=== PATIENT | male | born 1960 ===

== ENCOUNTER 2016-10-13 18:09 | Emergency (ER) | payer MEDICAID, OTHER ==
[2016-10-13 18:41] VITALS: BP 148/106; PULSE 64; RESP 20; TEMP 98; O2SAT 98
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
== END 2016-10-13 19:43 | disposition home or self-care (01) ==
LOC: H.ER 18:09
DX: M79.642 Pain in left hand (principal); I10 Essential (primary) hypertension

== ENCOUNTER 2017-08-01 03:41 | Emergency (ER) | payer OTHER ==
[2017-08-01 04:06] VITALS: BP 149/80; PULSE 68; RESP 17; TEMP 98.4; O2SAT 98
--- NOTE | 2017-08-01 04:55 | ED PDOC ---
HPI: CCC, URI, Sore Throat Time Seen by Provider: 08/01/17 04:14 Chief Complaint (Nursing): Flu-like Symptoms Chief Complaint (Provider): flu-like symptoms History Per: Patient History/Exam Limitations: no limitations Onset/Duration Of Symptoms: Days (3) Current Symptoms Are (Timing): Still Present Additional History Per: Patient Additional Complaint(s): 57 y/o male presents with flu-like symptoms x 3 days. Patient reports nasal congestion, productive cough. Patient states this morning he noted intermittent bleeding from left nare, since resolved. Denies fever, chest pain , shortness of breath, palpitations, abdominal pain, recent travel, sick contacts. Past Medical History Reviewed: Historical Data, Nursing Documentation, Vital Signs Vital Signs: Last Vital Signs Temp 98.4 F 08/01/17 04:03 Pulse 68 08/01/17 04:03 Resp 17 08/01/17 04:03 BP 149/80 08/01/17 04:03 Pulse Ox 98 08/01/17 05:31 - Medical History PMH: HTN - Family History Family History: States: Unknown Family Hx - Immunization History Hx Tetanus Toxoid Vaccination: Yes Hx Influenza Vaccination: No Hx Pneumococcal Vaccination: No - Home Medications Home Medications: Ambulatory Orders Medication Instructions Recorded Lisinopril/Hydrochlorothiazide 1 tab PO DAILY 02/19/16 [Lisinopril-Hctz 20-25 mg Tab] Meclizine [Antivert] 12.5 mg PO TID PRN #15 tab 02/19/16 Ibuprofen [Motrin] 400 mg PO Q6 #30 tab 10/13/16 Promethazine DM [Phenergan DM 5 ml PO Q6 PRN #1 bottle 08/01/17 Syrup] Sodium Chloride [[facility] 1 spray NS Q4 PRN #1 bottle 08/01/17 Pharmacy Saline Nasal [place] 44 ] - Allergies Allergies/Adverse Reactions: Allergies Allergy/AdvReac Type Severity Reaction Status Date / Time No Known Allergies Allergy Verified 02/19/16 06:40 Review of Systems ROS Statement: Except As Marked, All Systems Reviewed And Found Negative ENT: Positive for: Nose Congestion Cardiovascular: Positive for: Chest Pain Physical Exam - Reviewed Nursing Documentation Reviewed: Yes Vital Signs Reviewed: Yes - Physical Exam Appears: Positive for: Well, Non-toxic, No Acute Distress Head Exam: Positive for: ATRAUMATIC, NORMAL INSPECTION, NORMOCEPHALIC Skin: Positive for: Normal Color ENT: Positive for: Nasal Congestion Cardiovascular/Chest: Positive for: Regular Rate, Rhythm Respiratory: Positive for: Normal Breath Sounds Gastrointestinal/Abdominal: Positive for: Normal Exam Back: Positive for: Normal Inspection Extremity: Positive for: Normal ROM Neurologic/Psych: Positive for: Alert, Oriented - ECG O2 Sat by Pulse Oximetry: 98 Pulse Ox Interpretation: Normal - Radiology X-Ray: Viewed By Me X-Ray Interpretation: No Acute Disease - Progress ED Course And Treament: flu, chest xray Patient educated on findings, discharged with rx promethazine DM. Advised nasal saline OTC PRN. Follow up PMD 2-3 days. Return precautions given. Disposition - Clinical Impression Clinical Impression: Epistaxis, URI (upper respiratory infection) - Patient ED Disposition Is Patient to be Admitted: No Counseled Patient/Family Regarding: Studies Performed, Diagnosis, Need For Followup, Rx Given - Disposition Referrals: Kalpana Mott MD [Primary Care Provider] - Disposition: Routine/Home Disposition Time: 05:38 Condition: GOOD Prescriptions: Promethazine DM [Phenergan DM Syrup] 5 ml PO Q6 PRN #1 bottle PRN Reason: Cough Sodium Chloride [[facility] Saline Nasal [place] 44 ] 1 spray NS Q4 PRN #1 bottle PRN Reason: nasal congestion Instructions: Upper Respiratory Infection (ED), Nosebleed (ED) Forms: [facility] ([place]) Print Language: COMORAN
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
== END 2017-08-01 05:55 | disposition home or self-care (01) ==
LOC: H.ER 03:41
DX: J06.9 Acute upper respiratory infection, unspecified (principal); R04.0 Epistaxis; I10 Essential (primary) hypertension

== ENCOUNTER 2017-08-20 17:16 | Emergency (ER) | payer OTHER ==
[2017-08-20 17:41] VITALS: BP 143/91; PULSE 93; RESP 16; TEMP 98.1; O2SAT 97
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
--- NOTE | 2017-08-21 12:50 | RAD ---
HISTORY: Cough COMPARISON: 08/01/2017. TECHNIQUE: Chest PA and lateral FINDINGS: LUNGS: No active pulmonary disease. PLEURA: No significant pleural effusion identified. No pneumothorax apparent. CARDIOVASCULAR: No radiographic findings to suggest acute or significant cardiovascular disease. OSSEOUS STRUCTURES: No significant abnormalities. VISUALIZED UPPER ABDOMEN: Normal. OTHER FINDINGS: None. IMPRESSION: No active disease. No significant interval change compared to the prior examination(s).
== END 2017-08-20 21:01 | disposition home or self-care (01) ==
LOC: H.ER 17:16
DX: J40 Bronchitis, not specified as acute or chronic (principal); I10 Essential (primary) hypertension

== ENCOUNTER 2018-06-05 01:56 | Inpatient (IN) | payer OTHER ==
[2018-06-05] MEDS ORDERED: Sodium Chloride 0.9% 1,000 ML IV STA (02:57)
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
[2018-06-05 04:03] LABS: BASO # 0.1 K/uL (0.0-0.2); BASO % 0.7 % (0.0-2.0); EOS # 0.2 K/uL (0.0-0.7); EOS % 1.8 % (0.0-4.0); HEMOGLOBIN 15.5 g/dL (12.0-18.0); LYMPH # 2.4 K/uL (1.0-4.3); LYMPH % 25.6 % (20.0-40.0); MEAN CELL VOLUME 83.1 fl (80.0-94.0); MEAN CORPUSCULAR HEMOGLOBIN 28.3 pg (27.0-31.0); MEAN PLATELET VOLUME 8.6 fl (7.2-11.7); MONO # 0.8 K/uL (0.0-0.8); MONO % 8.9 % (0.0-10.0); NEUT # 5.9 K/uL (1.8-7.0); NRBC % 0.1 % (0.0-0.0); RBC 5.47 Mil/uL (4.40-5.90); RED CELL DISTRIBUTION WIDTH 14.5 % (11.5-14.5); WHITE BLOOD COUNT 9.3 K/uL (4.8-10.8)
[2018-06-05 04:13] LABS: ALB/GLOB RATIO 1.3 (1.0-2.1); ALBUMIN 4.7 g/dL (3.5-5.0); ALT/SGPT 46 U/L (21-72); AST/SGOT 29 U/L (17-59); BLOOD UREA NITROGEN 16 mg/dl (9-20); CALCIUM 8.9 mg/dL (8.4-10.2); GFR NON-AFRICAN AMERICAN > 60; LIPASE 199 U/L (23-300)
[2018-06-05 04:31] LABS: URINE BACTERIA RARE (<OCC); URINE BILIRUBIN NEGATIVE (NEGATIVE); URINE BLOOD NEGATIVE (NEGATIVE); URINE CLARITY SLIGHTY-CLOUDY (Clear); URINE COLOR YELLOW (YELLOW); URINE GLUCOSE (UA) NEG (Normal); URINE LEUKOCYTE ESTERASE NEG Leu/uL (Negative); URINE PROTEIN NEGATIVE (NEGATIVE)
[2018-06-05] MEDS ORDERED: Piperacillin/Tazobact 3.375 GM in Sodium Chloride 0.9% 100 ML IV ONE (04:51)
[2018-06-05 04:52] LABS: PROTHROMBIN TIME 11.3 Seconds (9.8-13.1)
[2018-06-05 04:55] LABS: PARTIAL THROMBOPLASTIN TIME 32.9 Seconds (25.6-37.1)
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
[2018-06-05] MEDS ORDERED: Dextrose 5%/Lactated Ringer's 1,000 ML IV SCH ×2 (05:15)
[2018-06-05] MEDS: Potassium Chloride 20 mEq 100 ML IVPB SCH ×2 (06:26→09:30)
--- NOTE | 2018-06-05 08:37 | CARD ---
APPROVED REPORT Date of service: 06/05/2018 EKG Measurement Heart [id number] <Conclusion> Normal sinus rhythm Normal ECG
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
--- NOTE | 2018-06-05 11:16 | US ---
Date of service: 06/05/2018 HISTORY: upper abdominal pain COMPARISON: 03/24/2013. Abdominal ultrasound TECHNIQUE: Sonographic evaluation of the right upper quadrant of the abdomen. FINDINGS: LIVER: Measures 15.2 cm in length. Hepatopedal blood flow. Fatty infiltration manifest ultrasonographically as increased echogenicity of the liver parenchyma. No mass. No intrahepatic bile duct dilatation. Incidental finding(s): Simple cyst left hepatic lobe 3 x 3.3 cm. Stable finding compared to the prior study. GALLBLADDER: Gallstones. Gallbladder wall thickening, pericholecystic fluid and positive sonographic Baird sign. COMMON BILE DUCT: Measures 5.9 mm. No stones. No dilatation. PANCREAS: Obscured by overlying bowel gas. Non diagnostic assessment of the pancreas. RIGHT KIDNEY: Measures 5.1 x 10.1 cm in length. Normal echogenicity. No calculus, mass, or hydronephrosis. AORTA: No aneurysmal dilatation. IVC: Unremarkable. OTHER FINDINGS: None . IMPRESSION: Cholelithiasis, ultrasound findings of acute cholecystitis. Limitations of the current examination: Nondiagnostic study of the pancreas obscured by overlying bowel gas. Concordant findings (preliminary report) provided by ALMAZ ESQUEDA.
[2018-06-05] MEDS ORDERED: Piperacillin/Tazobact 3.375 gm Inj IVPB ONE (13:52)
[2018-06-05] MEDS: Piperacillin/Tazobact 3.375 GM in Sodium Chloride 0.9% 100 ML IVPB SCH ×2 (14:08→19:15)
[2018-06-05] MEDS ORDERED: Propofol 10 mg/ml Inj (20 ML) ONE ×2 (15:04→17:30)
[2018-06-05] MEDS ORDERED: Succinylcholine 200 mg/10 ml Inj IV ONE (15:05)
[2018-06-05] MEDS ORDERED: Midazolam 2 MG/2 ML VIAL ONE (15:05)
[2018-06-05] MEDS ORDERED: Rocuronium 10 mg/ml (5 ml) ONE (15:05)
[2018-06-05] MEDS ORDERED: Lidocaine 4% (Laryng-O-Jet) Kit MM ONE (15:05)
[2018-06-05] MEDS ORDERED: Lactated Ringer's 1,000 ML IV ONE ×2 (15:30→20:35)
[2018-06-05] MEDS ORDERED: Sodium Chloride 0.9% 1,000 ML IV ONE (15:40)
[2018-06-05] MEDS ORDERED: Labetalol 5mg/ml (4ml) ONE (16:02)
[2018-06-05] MEDS ORDERED: Neostigmine 1:1000 (1 mg/ml) Inj ONE (16:59)
[2018-06-05] MEDS ORDERED: Lactated Ringer's 500 ML IV ONE ×2 (17:08→17:40)
[2018-06-05] MEDS ORDERED: DiphenhydrAMINE 50 mg/ml Inj IVP PRN (17:43)
[2018-06-05] MEDS ORDERED: Dexamethasone 4 mg/1 ml IVP PRN (17:43)
[2018-06-05] MEDS ORDERED: Labetalol 5mg/ml (4ml) IVP PRN (17:43)
[2018-06-05] MEDS ORDERED: HYDROmorphone 0.5 mg/0.5 ml ISec ONE (17:45)
[2018-06-05] MEDS ORDERED: Lactated Ringer's 1,000 ML IV SCH (17:45)
[2018-06-05] MEDS ORDERED: HYDROmorphone 0.5 mg/0.5 ml ISec IVP PRN ×2 (17:46→18:15)
--- NOTE | 2018-06-05 17:48 | PCM.SURG1 ---
Surgeon's Initial Post Op Note - Surgeon's Notes Surgeon: Dr. Amaya Supervisor Road Administrator: Mary Jo Galaviz PGY3, Rose PGY4 Type of Anesthesia: General Endo Anesthesia Administered By: Dr. cardenas Pre-Operative Diagnosis: cholecystitis Operative Findings: large 3 gallstones , marked adhesions. Post-Operative Diagnosis: CHolelithiasis Operation Performed: Laparoscopic cholecystectomy , ENRRIQUE Specimen/Specimens Removed: gallbladder Estimated Blood Loss: EBL {In ML}: 50 Blood Products Given: N/A Drains Used: No Drains Post-Op Condition: Good Date of Surgery/Procedure: 06/05/18 Time of Surgery/Procedure: 17:48
[2018-06-05] MEDS: HYDROmorphone 0.5 mg/0.5 ml ISec IVP PRN ×2 (17:55→18:10)
[2018-06-05] MEDS ORDERED: Patient's Own Med (Lisinopril/Hydrochlorothiazide [Lisinopril-Hctz 20-25 Mg Tab] 1 TAB) PO SCH (21:10)
[2018-06-05] MEDS: Oxycodone/Acetaminophen 5/325 mg Tab PO PRN (23:15)
[2018-06-06] MEDS: Piperacillin/Tazobact 3.375 GM in Sodium Chloride 0.9% 100 ML IVPB SCH ×3 (00:09→12:01)
[2018-06-06 08:00] VITALS: BP 163/99; PULSE 80; RESP 19; TEMP 98.8; O2SAT 94
[2018-06-06 08:15] LABS: HEMOGLOBIN 13.9 g/dL (12.0-18.0); MEAN CELL VOLUME 83.4 fl (80.0-94.0); MEAN CORPUSCULAR HGB CONC 33.6 g/dL (33.0-37.0); RBC 4.96 Mil/uL (4.40-5.90); RED CELL DISTRIBUTION WIDTH 14.3 % (11.5-14.5); WHITE BLOOD COUNT 9.5 K/uL (4.8-10.8)
[2018-06-06 08:31] LABS: ALB/GLOB RATIO 1.3 (1.0-2.1); ALBUMIN 3.8 g/dL (3.5-5.0); ALT/SGPT 76 U/L (21-72); AST/SGOT 83 U/L (17-59); BLOOD UREA NITROGEN 8 mg/dl (9-20); CALCIUM 8.3 mg/dL (8.4-10.2); GFR NON-AFRICAN AMERICAN > 60
--- NOTE | 2018-06-06 08:32 | CP.PCM.DIS ---
Provider - Provider Date of Admission: 06/05/18 04:57 Attending physician: Karley Amaya MD Time Spent in preparation of Discharge (in minutes): 30 Diagnosis - Discharge Diagnosis (1) Acute cholecystitis Status: Acute Hospital Course - Lab Results Lab Results: Micro Results 06/05/18 04:30 Blood Blood Culture - Preliminary NO GROWTH AFTER 24 HOURS 06/05/18 04:06 Blood Blood Culture - Preliminary NO GROWTH AFTER 24 HOURS Most Recent Lab Values WBC 9.3 K/uL (4.8-10.8) 06/05/18 03:55 RBC 5.47 Mil/uL (4.40-5.90) 06/05/18 03:55 Hgb 15.5 g/dL (12.0-18.0) 06/05/18 03:55 Hct 45.5 % (35.0-51.0) 06/05/18 03:55 MCV 83.1 fl (80.0-94.0) 06/05/18 03:55 MCH 28.3 pg (27.0-31.0) 06/05/18 03:55 MCHC 34.0 g/dL (33.0-37.0) 06/05/18 03:55 RDW 14.5 % (11.5-14.5) 06/05/18 03:55 Plt Count 196 K/uL (130-400) 06/05/18 03:55 MPV 8.6 fl (7.2-11.7) 06/05/18 03:55 Neut % (Auto) 63.0 % (50.0-75.0) 06/05/18 03:55 Lymph % (Auto) 25.6 % (20.0-40.0) 06/05/18 03:55 [place] % (Auto) 8.9 % (0.0-10.0) 06/05/18 03:55 Eos % (Auto) 1.8 % (0.0-4.0) 06/05/18 03:55 Baso % (Auto) 0.7 % (0.0-2.0) 06/05/18 03:55 Neut # (Auto) 5.9 K/uL (1.8-7.0) 06/05/18 03:55 Lymph # (Auto) 2.4 K/uL (1.0-4.3) 06/05/18 03:55 [place] # (Auto) 0.8 K/uL (0.0-0.8) 06/05/18 03:55 Eos # (Auto) 0.2 K/uL (0.0-0.7) 06/05/18 03:55 Baso # (Auto) 0.1 K/uL (0.0-0.2) 06/05/18 03:55 PT 11.3 Seconds (9.8-13.1) 06/05/18 04:00 INR 1.0 06/05/18 04:00 APTT 32.9 Seconds (25.6-37.1) 06/05/18 04:00 Sodium 140 mmol/l (132-148) 06/05/18 03:55 Potassium 3.4 MMOL/L (3.6-5.0) L 06/05/18 03:55 Chloride 101 mmol/L (98-107) 06/05/18 03:55 Carbon Dioxide 28 mmol/L (22-30) 06/05/18 03:55 Anion Gap 14 (10-20) 06/05/18 03:55 BUN 16 mg/dl (9-20) 06/05/18 03:55 Creatinine 1.2 mg/dl (0.8-1.5) 06/05/18 03:55 Est GFR ( Amer) > 60 06/05/18 03:55 Est GFR (Non-Af Amer) > 60 06/05/18 03:55 Random Glucose 115 mg/dL (75-110) H 06/05/18 03:55 Calcium 8.9 mg/dL (8.4-10.2) 06/05/18 03:55 Total Bilirubin 0.4 mg/dl (0.2-1.3) 06/05/18 03:55 AST 29 U/L (17-59) 06/05/18 03:55 ALT 46 U/L (21-72) 06/05/18 03:55 Alkaline Phosphatase 122 U/L (38-126) 06/05/18 03:55 Total Protein 8.3 G/DL (6.3-8.2) H 06/05/18 03:55 Albumin 4.7 g/dL (3.5-5.0) 06/05/18 03:55 Globulin 3.6 gm/dL (2.2-3.9) 06/05/18 03:55 Albumin/Globulin Ratio 1.3 (1.0-2.1) 06/05/18 03:55 Lipase 199 U/L (23-300) 06/05/18 03:55 Urine Color Yellow (YELLOW) 06/05/18 03:55 Urine Clarity Slighty-cloudy (Clear) 06/05/18 03:55 Urine pH 5.0 (5.0-8.0) 06/05/18 03:55 Ur Specific [place] 1.028 (1.003-1.030) 06/05/18 03:55 Urine Protein Negative mg/dL (NEGATIVE) 06/05/18 03:55 Urine Glucose (UA) Neg mg/dL (Normal) 06/05/18 03:55 Urine Ketones Negative mg/dL (NEGATIVE) 06/05/18 03:55 Urine Blood Negative (NEGATIVE) 06/05/18 03:55 Urine Nitrate Negative (NEGATIVE) 06/05/18 03:55 Urine Bilirubin Negative (NEGATIVE) 06/05/18 03:55 Urine Urobilinogen 2.0 mg/dL (0.2-1.0) 06/05/18 03:55 Ur Leukocyte Esterase Neg Hanane/uL (Negative) 06/05/18 03:55 Urine RBC (Auto) 4 /hpf (0-3) H 06/05/18 03:55 Urine Microscopic WBC < 1 /hpf (0-5) 06/05/18 03:55 Urine Bacteria Rare (<OCC) 06/05/18 03:55 - Hospital Course Hospital Course: 58M presented w. abd pain 2/2 cholecystitis. Undewent lap ursula. Post-op course uncomplicated. Tolerating diet. Pain controlled. Clear for D/C from surgical standpoint. Discharge Exam - Head Exam Head Exam: ATRAUMATIC, NORMOCEPHALIC - Eye Exam Eye Exam: EOMI - ENT Exam ENT Exam: Mucous Membranes Moist - Respiratory Exam Respiratory Exam: NORMAL BREATHING PATTERN. absent: Accessory Muscle Use, Respiratory Distress - Cardiovascular Exam Cardiovascular Exam: REGULAR RHYTHM - GI/Abdominal Exam GI & Abdominal Exam: Soft. absent: Distended, Firm, Guarding, Rebound, Rigid, Tenderness - Neurological Exam Neurological exam: Alert, Oriented x3 - Psychiatric Exam Psychiatric exam: Normal Affect, Normal Mood Discharge Plan - Follow Up Plan Condition: FAIR Disposition: HOME/ ROUTINE Patient education suggested?: Yes Instructions: Cholecystectomy, Laparoscopic Surgery Additional Instructions: F/U in 1-2 weeks Diet as tolerated No Heavy lifting >15-20lbs for 4 weeks Referrals: Karley Amaya MD [Staff Provider] -
[2018-06-06] MEDS ORDERED: Patient's Own Med (Lisinopril/Hydrochlorothiazide [Lisinopril-Hctz 20-25 Mg Tab] 1 TAB) PO SCH (09:00)
[2018-06-06] MEDS: Oxycodone/Acetaminophen 5/325 mg Tab PO PRN (09:41)
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
== END 2018-06-06 14:09 | disposition home or self-care (01) | DRG 419 ==
LOC: H.ER 01:56 → H.ERHOLD 04:57 → H.MEDSURG1 20:54
PROVIDERS: ADMIT Specialist; ATTEND Specialist
PROC: 0FT44ZZ Resection of Gallbladder, Percutaneous Endoscopic Approach (ICD-10-PCS; principal; 2018-06-05 16:00)
DX: K80.12 Calculus of gallbladder with acute and chronic cholecystitis without obstruction (principal); H26.9 Unspecified cataract; Z87.891 Personal history of nicotine dependence; I10 Essential (primary) hypertension; K76.0 Fatty (change of) liver, not elsewhere classified

== ENCOUNTER 2018-06-16 08:54 | Inpatient (IN) | payer OTHER ==
[2018-06-16] MEDS ORDERED: Iohexol 240 (50 ml) PO ONE (10:36)
[2018-06-16] MEDS ORDERED: Iohexol 240 (50 ml) ONE (11:00)
[2018-06-16] MEDS ORDERED: Morphine 4 MG/ML VIAL ONE ×2 (11:01→13:34)
[2018-06-16 11:34] LABS: BASO % 0.5 % (0.0-2.0); EOS # 0.2 K/uL (0.0-0.7); EOS % 1.5 % (0.0-4.0); HEMOGLOBIN 15.6 g/dL (12.0-18.0); LYMPH # 1.7 K/uL (1.0-4.3); LYMPH % 17.4 % (20.0-40.0); MEAN CELL VOLUME 84.2 fl (80.0-94.0); MEAN CORPUSCULAR HGB CONC 33.3 g/dL (33.0-37.0); MEAN PLATELET VOLUME 8.6 fl (7.2-11.7); MONO # 0.6 K/uL (0.0-0.8); MONO % 6.4 % (0.0-10.0); NEUT # 7.4 K/uL (1.8-7.0); NEUT % 74.2 % (50.0-75.0); NRBC % 0.2 % (0.0-0.0); RBC 5.57 Mil/uL (4.40-5.90); RED CELL DISTRIBUTION WIDTH 14.3 % (11.5-14.5)
[2018-06-16 11:52] LABS: ALB/GLOB RATIO 1.3 (1.0-2.1); ALBUMIN 4.7 g/dL (3.5-5.0); ALT/SGPT 53 U/L (21-72); AST/SGOT 28 U/L (17-59); BLOOD UREA NITROGEN 13 mg/dl (9-20); CALCIUM 9.3 mg/dL (8.4-10.2); GFR NON-AFRICAN AMERICAN > 60
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
[2018-06-16] MEDS ORDERED: Sodium Chloride 0.9% 50 ML IV ONE (14:19)
[2018-06-16] MEDS ORDERED: Iohexol 300 100 ML IJ ONE (14:19)
--- NOTE | 2018-06-16 15:13 | CT ---
Date of service: 06/16/2018 PROCEDURE: CT Abdomen and Pelvis with contrast HISTORY: abdominal pain sp cholecystectomy COMPARISON: 05/16/2012 TECHNIQUE: Contrast dose: 95 cc Omnipaque 300 Radiation dose: Total exam DLP = 920.8 mGy-cm. This CT exam was performed using one or more of the following dose reduction techniques: Automated exposure control, adjustment of the mA and/or kV according to patient size, and/or use of iterative reconstruction technique. FINDINGS: LOWER THORAX: Linear scar/atelectasis in both lower lobes. No infiltrate. LIVER: Normal size, contour and attenuation. In the left lobe of the liver there is a fluid density mass measuring roughly 2.1 x 4.0 cm. It is slightly irregular in shape. On prior examination of 2011, this measured 2.4 cm in greatest dimension. Given that it is enlarging, evaluation with ultrasound is suggested. No other hepatic mass. Smooth contour. No biliary dilatation. GALLBLADDER AND BILE DUCTS: Status post cholecystectomy. Small amount of fluid in the gallbladder fossa consistent with recent laparoscopic cholecystectomy. PANCREAS: Unremarkable. No gross lesion or ductal dilatation. SPLEEN: Unremarkable. ADRENALS: Unremarkable. No mass. KIDNEYS AND URETERS: Unremarkable. No hydronephrosis. No solid mass. VASCULATURE: Unremarkable. No aortic aneurysm. There is minimal atherosclerotic calcification of the abdominal aorta. BOWEL: Dilated loops of proximal small bowel with a transition point identified in the right mid abdomen at the level of the umbilicus, anteriorly, just lateral to the site of trocar insertion through the anterior abdominal wall. There is fecalization of small bowel content proximal to this transition point. No other abnormal bowel loops. APPENDIX: Normal appendix. PERITONEUM: Minimal ascites. Possibly related to recent cholecystectomy. There is a defect in the right parasagittal rectus abdominus muscle at the level of the umbilicus with fluid in the muscle and in the abdominal wall anterior to the muscle, consistent with a trocar tract. No pneumoperitoneum. LYMPH NODES: Unremarkable. No enlarged lymph nodes. BLADDER: Unremarkable. REPRODUCTIVE: Normal prostate BONES: No acute fracture. OTHER FINDINGS: None. IMPRESSION: Findings consistent with mechanical small bowel obstruction with transition point identified in the mid right anterior abdomen as described. Evidence of recent laparoscopic cholecystectomy. Enlarging low-density mass in left lobe of liver. Recommend correlation with abdominal ultrasound. Minimal ascites.
[2018-06-16] MEDS ORDERED: Sodium Chloride 0.9% 1,000 ML IV STA (16:31)
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
[2018-06-16] MEDS ORDERED: Albuterol HFA 90 mcg/actuation (8 g) IH PRN (17:26)
[2018-06-16] MEDS: Sodium Chloride 0.9% 1,000 ML IV SCH (17:50)
[2018-06-16] MEDS ORDERED: Morphine 4 MG/ML VIAL IVP ONE (17:57)
[2018-06-17] MEDS: Sodium Chloride 0.9% 1,000 ML IV SCH ×5 (04:00→22:45)
[2018-06-17 06:28] LABS: HEMOGLOBIN 13.1 g/dL (12.0-18.0); MEAN CELL VOLUME 83.7 fl (80.0-94.0); MEAN CORPUSCULAR HEMOGLOBIN 27.6 pg (27.0-31.0); MEAN CORPUSCULAR HGB CONC 32.9 g/dL (33.0-37.0); RBC 4.77 Mil/uL (4.40-5.90); RED CELL DISTRIBUTION WIDTH 14.5 % (11.5-14.5); WHITE BLOOD COUNT 7.9 K/uL (4.8-10.8)
[2018-06-17 06:42] LABS: BLOOD UREA NITROGEN 16 mg/dl (9-20); CALCIUM 8.3 mg/dL (8.4-10.2); GFR NON-AFRICAN AMERICAN > 60
[2018-06-17] MEDS: Enoxaparin 40 mg Syringe SC SCH (08:43)
[2018-06-17] MEDS: PrednisoLONE 1% OPTH SUSP OD SCH (08:44)
[2018-06-17] MEDS ORDERED: Patient's Own Med (Lisinopril/Hydrochlorothiazide [Lisinopril-Hctz 20-12.5 Mg Tab] 1 TAB) PO SCH (09:00)
--- NOTE | 2018-06-17 11:50 | RAD ---
Date of service: 06/17/2018 HISTORY: SBO contrast progression COMPARISON: None available. FINDINGS: BOWEL: Dilated loops of small bowel remain primarily visible in the left upper quadrant. Contrast identified in nondistended colon. BONES: Normal. OTHER FINDINGS: Contrast identified in otherwise unremarkable urinary bladder. IMPRESSION: Persistent findings of small bowel obstruction. Oral contrast administered as part of the CT scan is now in nondistended colon
--- NOTE | 2018-06-17 12:59 | CP.PCM.PN ---
Subjective - Date & Time of Evaluation Date of Evaluation: 06/17/18 Time of Evaluation: 10:00 - Subjective Subjective: General Surgery: Dr. Amaya Patient seen and examined this am at bedside. NAEO per nursing. Patient is feeling much better, passing flatus and having BM he denies n/v. Patient otherwise denies TURNER, SOB, CP, extremity pain or weakness. Objective - Vital Signs/Intake and Output Vital Signs (last 24 hours): Temp Pulse Resp BP Pulse Ox 98.3 F 67 20 156/100 H 98 06/17/18 07:52 06/17/18 10:36 06/17/18 07:52 06/17/18 10:36 06/17/18 07:52 - Medications Medications: Current Medications Albuterol (Ventolin Hfa 90 Mcg/Actuation (8 G)) 2 puff IH Q6 PRN PRN Reason: Shortness of Breath Enoxaparin Sodium (Lovenox) 40 mg SC DAILY [facility]; Protocol Last Admin: 06/17/18 08:43 Dose: 40 mg Hydrochlorothiazide (Microzide) 12.5 mg PO DAILY [facility] Last Admin: 06/17/18 10:36 Dose: 12.5 mg Sodium Chloride (Sodium Chloride 0.9%) 1,000 mls @ 100 mls/hr IV .Q10H [facility] Last Admin: 06/17/18 05:16 Dose: 100 mls/hr Ketorolac Tromethamine (Toradol) 15 mg IVP Q6 PRN PRN Reason: Pain, moderate (4-7) Last Admin: 06/17/18 05:19 Dose: 15 mg Lisinopril (Zestril) 20 mg PO DAILY [facility] Last Admin: 06/17/18 10:36 Dose: 20 mg Ondansetron HCl (Zofran Inj) 4 mg IVP Q6 PRN PRN Reason: Nausea/Vomiting Prednisolone Acetate (Pred Forte 1% Opht Susp) 1 drop OD DAILY [facility] Last Admin: 06/17/18 08:44 Dose: 1 drop - Labs Labs: 06/17/18 06:00 06/17/18 06:00 - Constitutional Appears: Well, Non-toxic, No Acute Distress - Eye Exam Eye Exam: EOMI - ENT Exam ENT Exam: Mucous Membranes Moist - Respiratory Exam Respiratory Exam: NORMAL BREATHING PATTERN - Cardiovascular Exam Cardiovascular Exam: REGULAR RHYTHM - GI/Abdominal Exam GI & Abdominal Exam: Soft. absent: Distended, Guarding, Tenderness Additional comments: incisions cdi - Extremities Exam Extremities Exam: absent: Calf Tenderness, Pedal Edema - Neurological Exam Neurological Exam: Alert, Awake, Oriented x3 - Psychiatric Exam Psychiatric exam: Normal Affect, Normal Mood - Skin Skin Exam: Dry, Intact, Normal Color, Warm Assessment and Plan - Assessment and Plan (Free Text) Assessment: 58 yr old male with sbo (resolving) s/p cholecystectomy POD 12 Plan: CLD continue pain control monitor bowel function will continue to follow d/w Dr. Jose Luis Ugarte, PGY1
--- NOTE | 2018-06-18 07:32 | CP.PCM.PN ---
Subjective - Date & Time of Evaluation Date of Evaluation: 06/18/18 Time of Evaluation: 07:30 - Subjective Subjective: Surgery PT seen and examined. Had diarrhea yesterday. Denies nausea. c/o abd pain. AMbulated, voided. No flatus today. Objective - Vital Signs/Intake and Output Vital Signs (last 24 hours): Temp Pulse Resp BP Pulse Ox 97.9 F 63 18 153/96 H 98 06/17/18 23:15 06/17/18 23:15 06/17/18 23:15 06/17/18 23:15 06/17/18 23:15 - Medications Medications: Current Medications Albuterol (Ventolin Hfa 90 Mcg/Actuation (8 G)) 2 puff IH Q6 PRN PRN Reason: Shortness of Breath Enoxaparin Sodium (Lovenox) 40 mg SC DAILY [facility]; Protocol Last Admin: 06/17/18 08:43 Dose: 40 mg Hydrochlorothiazide (Microzide) 12.5 mg PO DAILY [facility] Last Admin: 06/17/18 10:36 Dose: 12.5 mg Sodium Chloride (Sodium Chloride 0.9%) 1,000 mls @ 100 mls/hr IV .Q10H [facility] Last Admin: 06/17/18 22:45 Dose: Not Given Ketorolac Tromethamine (Toradol) 15 mg IVP Q6 PRN PRN Reason: Pain, moderate (4-7) Last Admin: 06/18/18 04:16 Dose: 15 mg Lisinopril (Zestril) 20 mg PO DAILY [facility] Last Admin: 06/17/18 10:36 Dose: 20 mg Ondansetron HCl (Zofran Inj) 4 mg IVP Q6 PRN PRN Reason: Nausea/Vomiting Prednisolone Acetate (Pred Forte 1% Opht Susp) 1 drop OD DAILY [facility] Last Admin: 06/17/18 08:44 Dose: 1 drop - Labs Labs: 06/17/18 06:00 06/17/18 06:00 - Constitutional Appears: No Acute Distress - Head Exam Head Exam: ATRAUMATIC, NORMAL INSPECTION, NORMOCEPHALIC - Eye Exam Eye Exam: EOMI, Normal appearance, PERRL Pupil Exam: NORMAL ACCOMODATION, PERRL - ENT Exam ENT Exam: Mucous Membranes Moist - Neck Exam Neck Exam: Normal Inspection - Respiratory Exam Respiratory Exam: NORMAL BREATHING PATTERN - Cardiovascular Exam Cardiovascular Exam: REGULAR RHYTHM - GI/Abdominal Exam GI & Abdominal Exam: Distended, Soft, Tenderness Additional comments: Incision healing. - Exam Exam: NORMAL INSPECTION - Extremities Exam Extremities Exam: Full ROM, Normal Inspection - Back Exam Back Exam: NORMAL INSPECTION - Neurological Exam Neurological Exam: Alert, Awake, Normal Gait, Oriented x3 - Psychiatric Exam Psychiatric exam: Normal Affect, Normal Mood - Skin Skin Exam: Dry, Erythema, Intact, Warm Assessment and Plan - Assessment and Plan (Free Text) Assessment: 58 yr old male with sbo s/p cholecystectomy POD 13 Plan: NPO continue pain control monitor bowel function will continue to follow d/w Dr. Amaya
[2018-06-18] MEDS: Enoxaparin 40 mg Syringe SC SCH (08:41)
[2018-06-18] MEDS: PrednisoLONE 1% OPTH SUSP OD SCH (08:42)
[2018-06-18] MEDS: Simethicone 80 mg Chewtab PO SCH ×4 (08:50→21:00)
[2018-06-18] MEDS: Sodium Chloride 0.9% 1,000 ML IV SCH ×2 (10:40→19:15)
[2018-06-19] MEDS: Sodium Chloride 0.9% 1,000 ML IV SCH ×4 (00:53→22:49)
[2018-06-19 06:49] LABS: BASO % 0.4 % (0.0-2.0); EOS # 0.2 K/uL (0.0-0.7); EOS % 2.1 % (0.0-4.0); HEMOGLOBIN 13.8 g/dL (12.0-18.0); LYMPH % 10.2 % (20.0-40.0); MEAN CELL VOLUME 82.2 fl (80.0-94.0); MEAN CORPUSCULAR HEMOGLOBIN 27.6 pg (27.0-31.0); MEAN CORPUSCULAR HGB CONC 33.6 g/dL (33.0-37.0); MEAN PLATELET VOLUME 8.1 fl (7.2-11.7); MONO # 0.7 K/uL (0.0-0.8); MONO % 7.1 % (0.0-10.0); NEUT # 8.1 K/uL (1.8-7.0); NEUT % 80.2 % (50.0-75.0); RBC 5.01 Mil/uL (4.40-5.90); RED CELL DISTRIBUTION WIDTH 14.2 % (11.5-14.5); WHITE BLOOD COUNT 10.1 K/uL (4.8-10.8)
[2018-06-19 07:30] LABS: ALB/GLOB RATIO 1.1 (1.0-2.1); ALBUMIN 3.7 g/dL (3.5-5.0); ALT/SGPT 38 U/L (21-72); AST/SGOT 26 U/L (17-59); BLOOD UREA NITROGEN 12 mg/dl (9-20); CALCIUM 8.8 mg/dL (8.4-10.2); GFR NON-AFRICAN AMERICAN > 60
[2018-06-19] MEDS: Enoxaparin 40 mg Syringe SC SCH (08:26)
[2018-06-19] MEDS: Simethicone 80 mg Chewtab PO SCH ×4 (08:28→21:24)
[2018-06-19] MEDS: PrednisoLONE 1% OPTH SUSP OD SCH (08:31)
--- NOTE | 2018-06-19 09:12 | CP.PCM.PN ---
Subjective - Date & Time of Evaluation Date of Evaluation: 06/19/18 Time of Evaluation: 08:58 - Subjective Subjective: Surgery PT seen and examined. No acute events. Denies fever, vomiting. Had BM. c/o abd pain. Objective - Vital Signs/Intake and Output Vital Signs (last 24 hours): Temp Pulse Resp BP Pulse Ox 98.5 F 60 18 143/93 H 98 06/19/18 00:36 06/19/18 08:29 06/19/18 00:36 06/19/18 08:29 06/19/18 00:36 - Medications Medications: Current Medications Albuterol (Ventolin Hfa 90 Mcg/Actuation (8 G)) 2 puff IH Q6 PRN PRN Reason: Shortness of Breath Enoxaparin Sodium (Lovenox) 40 mg SC DAILY [facility]; Protocol Last Admin: 06/19/18 08:26 Dose: 40 mg Hydrochlorothiazide (Microzide) 12.5 mg PO DAILY [facility] Last Admin: 06/19/18 08:28 Dose: 12.5 mg Sodium Chloride (Sodium Chloride 0.9%) 1,000 mls @ 100 mls/hr IV .Q10H [facility] Last Admin: 06/19/18 05:15 Dose: Not Given Ketorolac Tromethamine (Toradol) 15 mg IVP Q6 PRN PRN Reason: Pain, moderate (4-7) Last Admin: 06/19/18 06:54 Dose: 15 mg Lisinopril (Zestril) 20 mg PO DAILY [facility] Last Admin: 06/19/18 08:29 Dose: 20 mg Ondansetron HCl (Zofran Inj) 4 mg IVP Q6 PRN PRN Reason: Nausea/Vomiting Prednisolone Acetate (Pred Forte 1% Opht Susp) 1 drop OD DAILY [facility] Last Admin: 06/19/18 08:31 Dose: 1 drop Simethicone (Mylicon Chew Tab) 80 mg PO [facility] Last Admin: 06/19/18 08:28 Dose: 80 mg - Labs Labs: 06/19/18 06:40 06/19/18 06:40 - Constitutional Appears: No Acute Distress - Head Exam Head Exam: ATRAUMATIC, NORMAL INSPECTION, NORMOCEPHALIC - Eye Exam Eye Exam: EOMI, Normal appearance, PERRL Pupil Exam: NORMAL ACCOMODATION, PERRL - ENT Exam ENT Exam: Mucous Membranes Moist, Normal Exam - Neck Exam Neck Exam: Normal Inspection - Respiratory Exam Respiratory Exam: NORMAL BREATHING PATTERN - Cardiovascular Exam Cardiovascular Exam: REGULAR RHYTHM - GI/Abdominal Exam GI & Abdominal Exam: Distended, Soft, Tenderness. absent: Firm, Rigid - Exam Exam: NORMAL INSPECTION - Extremities Exam Extremities Exam: Full ROM - Back Exam Back Exam: NORMAL INSPECTION - Neurological Exam Neurological Exam: Alert, Awake - Psychiatric Exam Psychiatric exam: Normal Affect, Normal Mood - Skin Skin Exam: Dry, Intact, Normal Color, Warm Assessment and Plan - Assessment and Plan (Free Text) Assessment: 58 yr old male with sbo s/p cholecystectomy POD 14 Plan: FLD Advance as tolerated. continue pain control monitor bowel function will continue to follow Will d/w Dr. Amaya
[2018-06-20] MEDS: Sodium Chloride 0.9% 1,000 ML IV SCH (01:15)
[2018-06-20] MEDS: Simethicone 80 mg Chewtab PO SCH ×4 (08:58→21:11)
[2018-06-20] MEDS: PrednisoLONE 1% OPTH SUSP OD SCH (08:59)
[2018-06-20] MEDS: Enoxaparin 40 mg Syringe SC SCH (09:00)
--- NOTE | 2018-06-20 10:48 | CP.PCM.PN ---
Subjective - Date & Time of Evaluation Date of Evaluation: 06/20/18 Time of Evaluation: 07:05 - Subjective Subjective: SURGERY NOTE FOR DR. REYNOLDS 58M seen and examined at bedside. Patient denies abdominal pain, denies nausea, vomiting, fevers, chill. He is tolerating full liquid diet. He is passing gas and had liquid BMs 2 days ago. Objective - Vital Signs/Intake and Output Vital Signs (last 24 hours): Temp Pulse Resp BP Pulse Ox 98.1 F 72 20 135/88 97 06/20/18 08:18 06/20/18 08:59 06/20/18 08:18 06/20/18 08:59 06/20/18 08:18 - Medications Medications: Current Medications Acetaminophen (Tylenol 325mg Tab) 650 mg PO Q6 PRN PRN Reason: Pain, Mild (1-3) Last Admin: 06/19/18 16:45 Dose: 650 mg Albuterol (Ventolin Hfa 90 Mcg/Actuation (8 G)) 2 puff IH Q6 PRN PRN Reason: Shortness of Breath Hydrochlorothiazide (Microzide) 12.5 mg PO DAILY [facility] Last Admin: 06/20/18 09:01 Dose: 12.5 mg Sodium Chloride (Sodium Chloride 0.9%) 1,000 mls @ 100 mls/hr IV .Q10H [facility] Last Admin: 06/20/18 01:15 Dose: Not Given Ketorolac Tromethamine (Toradol) 15 mg IVP Q6 PRN PRN Reason: Pain, moderate (4-7) Last Admin: 06/19/18 20:09 Dose: 15 mg Lisinopril (Zestril) 20 mg PO DAILY [facility] Last Admin: 06/20/18 08:59 Dose: 20 mg Ondansetron HCl (Zofran Inj) 4 mg IVP Q6 PRN PRN Reason: Nausea/Vomiting Prednisolone Acetate (Pred Forte 1% Opht Susp) 1 drop OD DAILY [facility] Last Admin: 06/20/18 08:59 Dose: 1 drop Simethicone (Mylicon Chew Tab) 80 mg PO [facility] Last Admin: 06/20/18 08:58 Dose: 80 mg - Labs Labs: 06/19/18 06:40 06/19/18 06:40 - Constitutional Appears: Non-toxic, No Acute Distress - Respiratory Exam Respiratory Exam: Clear to Ausculation Bilateral, NORMAL BREATHING PATTERN - Cardiovascular Exam Cardiovascular Exam: REGULAR RHYTHM, +S1, +S2 - GI/Abdominal Exam GI & Abdominal Exam: Soft. absent: Distended, Firm, Guarding, Rigid, Tenderness, Rebound - Extremities Exam Extremities Exam: absent: Pedal Edema, Tenderness - Neurological Exam Neurological Exam: Alert, Awake - Skin Skin Exam: Dry, Intact, Normal Color, Warm Assessment and Plan - Assessment and Plan (Free Text) Assessment: 58M with SBO. resolved Plan: Pain control Advance diet as tolerated Serial abdominal exams Poss DC today / tomorrow Discussed with Dr. Jose Luis Aleman, PGY3
--- NOTE | 2018-06-21 07:58 | CP.PCM.PN ---
Subjective - Date & Time of Evaluation Date of Evaluation: 06/21/18 Time of Evaluation: 07:55 - Subjective Subjective: Surgery: Dr. Amaya Patient reports bilious vomiting episode last night. He does report diarrhea. He complains of persistent pain, somewhat improved, in the epigastric area. He denies f/c. He reports ambulating. Objective - Vital Signs/Intake and Output Vital Signs (last 24 hours): Temp Pulse Resp BP Pulse Ox 98.2 F 88 20 127/89 98 06/20/18 23:50 06/20/18 23:50 06/20/18 23:50 06/20/18 23:50 06/20/18 23:50 - Medications Medications: Current Medications Acetaminophen (Tylenol 325mg Tab) 650 mg PO Q6 PRN PRN Reason: Pain, Mild (1-3) Last Admin: 06/21/18 00:13 Dose: 650 mg Albuterol (Ventolin Hfa 90 Mcg/Actuation (8 G)) 2 puff IH Q6 PRN PRN Reason: Shortness of Breath Enoxaparin Sodium (Lovenox) 40 mg SC DAILY [facility]; Protocol Hydrochlorothiazide (Microzide) 12.5 mg PO DAILY [facility] Last Admin: 06/20/18 09:01 Dose: 12.5 mg Ketorolac Tromethamine (Toradol) 15 mg IVP Q6 PRN PRN Reason: Pain, moderate (4-7) Last Admin: 06/20/18 21:14 Dose: 15 mg Lisinopril (Zestril) 20 mg PO DAILY [facility] Last Admin: 06/20/18 08:59 Dose: 20 mg Ondansetron HCl (Zofran Inj) 4 mg IVP Q6 PRN PRN Reason: Nausea/Vomiting Prednisolone Acetate (Pred Forte 1% Opht Susp) 1 drop OD DAILY [facility] Last Admin: 06/20/18 08:59 Dose: 1 drop Simethicone (Mylicon Chew Tab) 80 mg PO [facility] Last Admin: 06/20/18 21:11 Dose: 80 mg - Labs Labs: 06/19/18 06:40 06/19/18 06:40 - Constitutional Appears: Non-toxic, No Acute Distress - Head Exam Head Exam: ATRAUMATIC, NORMOCEPHALIC - Eye Exam Eye Exam: EOMI, Normal appearance - ENT Exam ENT Exam: Mucous Membranes Moist - Respiratory Exam Respiratory Exam: NORMAL BREATHING PATTERN. absent: Respiratory Distress - Cardiovascular Exam Cardiovascular Exam: REGULAR RHYTHM. absent: Tachycardia - GI/Abdominal Exam GI & Abdominal Exam: Distended, Soft, Tenderness (mild epigastric ), Hernia (umbilical ) - Neurological Exam Neurological Exam: Alert, Awake - Psychiatric Exam Psychiatric exam: Normal Affect, Normal Mood - Skin Skin Exam: Dry, Warm Assessment and Plan - Assessment and Plan (Free Text) Assessment: 58 y/o male w/ persistent SBO s/p lap ursula on 06/05 Plan: -need small bowel series -downgrade to CLD -can take PO meds -encourage ambulation -DVT chemoppx -NGT if persistent n/v -pending imaging findings and clinical course patient may need diagnostic laparoscopy for further evaluation -d/w Dr. Jose Luis Jenkins PGY4
[2018-06-21] MEDS: Simethicone 80 mg Chewtab PO SCH ×3 (08:51→21:39)
[2018-06-21] MEDS: PrednisoLONE 1% OPTH SUSP OD SCH (08:51)
[2018-06-21] MEDS ORDERED: Enoxaparin 30 mg Syringe SC SCH (09:00)
[2018-06-21] MEDS: Enoxaparin 40 mg Syringe SC SCH (16:36)
[2018-06-22 06:29] LABS: BASO % 0.4 % (0.0-2.0); EOS # 0.1 K/uL (0.0-0.7); EOS % 1.2 % (0.0-4.0); HEMOGLOBIN 15.2 g/dL (12.0-18.0); LYMPH # 1.4 K/uL (1.0-4.3); LYMPH % 13.5 % (20.0-40.0); MEAN CELL VOLUME 82.3 fl (80.0-94.0); MEAN CORPUSCULAR HEMOGLOBIN 28.1 pg (27.0-31.0); MEAN CORPUSCULAR HGB CONC 34.1 g/dL (33.0-37.0); MEAN PLATELET VOLUME 8.9 fl (7.2-11.7); MONO # 1.3 K/uL (0.0-0.8); MONO % 12.6 % (0.0-10.0); NEUT # 7.6 K/uL (1.8-7.0); NEUT % 72.3 % (50.0-75.0); NRBC % 0.1 % (0.0-0.0); RBC 5.42 Mil/uL (4.40-5.90); RED CELL DISTRIBUTION WIDTH 14.2 % (11.5-14.5); WHITE BLOOD COUNT 10.5 K/uL (4.8-10.8)
[2018-06-22 07:04] LABS: BLOOD UREA NITROGEN 19 mg/dl (9-20); CALCIUM 9.2 mg/dL (8.4-10.2); GFR NON-AFRICAN AMERICAN > 60
[2018-06-22] MEDS: Simethicone 80 mg Chewtab PO SCH ×4 (09:12→21:32)
[2018-06-22] MEDS: Enoxaparin 40 mg Syringe SC SCH (09:14)
[2018-06-22] MEDS: PrednisoLONE 1% OPTH SUSP OD SCH (09:15)
--- NOTE | 2018-06-22 09:19 | CP.PCM.PN ---
Subjective - Date & Time of Evaluation Date of Evaluation: 06/22/18 Time of Evaluation: 09:17 - Subjective Subjective: SURGERY NOTE FOR DR. REYNOLDS 58M seen and examined at beside. Patient continues to have abdominal pain, continues to tolerate liquid diet only. Patient has bowel BMs but only diarrheal. No fevers or chills. Objective - Vital Signs/Intake and Output Vital Signs (last 24 hours): Temp Pulse Resp BP Pulse Ox 98.7 F 93 H 18 124/86 96 06/22/18 08:49 06/22/18 08:49 06/22/18 08:49 06/22/18 08:49 06/22/18 08:49 - Medications Medications: Current Medications Acetaminophen (Tylenol 325mg Tab) 650 mg PO Q6 PRN PRN Reason: Pain, Mild (1-3) Last Admin: 06/21/18 00:13 Dose: 650 mg Albuterol (Ventolin Hfa 90 Mcg/Actuation (8 G)) 2 puff IH Q6 PRN PRN Reason: Shortness of Breath Enoxaparin Sodium (Lovenox) 40 mg SC DAILY [facility]; Protocol Last Admin: 06/22/18 09:14 Dose: 40 mg Hydrochlorothiazide (Microzide) 12.5 mg PO DAILY [facility] Last Admin: 06/22/18 09:11 Dose: Not Given Ketorolac Tromethamine (Toradol) 15 mg IVP Q6 PRN PRN Reason: Pain, moderate (4-7) Last Admin: 06/22/18 09:15 Dose: 15 mg Lisinopril (Zestril) 20 mg PO DAILY [facility] Last Admin: 06/22/18 09:12 Dose: Not Given Ondansetron HCl (Zofran Inj) 4 mg IVP Q6 PRN PRN Reason: Nausea/Vomiting Prednisolone Acetate (Pred Forte 1% Opht Susp) 1 drop OD DAILY [facility] Last Admin: 06/22/18 09:15 Dose: 1 drop Simethicone (Mylicon Chew Tab) 80 mg PO [facility] Last Admin: 06/22/18 09:12 Dose: Not Given - Labs Labs: 06/22/18 05:55 06/22/18 05:55 - Constitutional Appears: Non-toxic, No Acute Distress - Respiratory Exam Respiratory Exam: Clear to Ausculation Bilateral, NORMAL BREATHING PATTERN - Cardiovascular Exam Cardiovascular Exam: REGULAR RHYTHM, +S1, +S2 - GI/Abdominal Exam GI & Abdominal Exam: Distended, Soft, Tenderness. absent: Firm, Guarding, Rigid, Rebound - Neurological Exam Neurological Exam: Alert, Awake Assessment and Plan - Assessment and Plan (Free Text) Assessment: 58M with small bowel obstruction Plan: - cont liquid diet - patient receiving repeat CT scan for further eval of non resolving obstruction Discussed with Dr. Jose Luis Aleman, PGY3
--- NOTE | 2018-06-22 10:51 | CT ---
Date of service: 06/22/2018 PROCEDURE: CT Abdomen and Pelvis without intravenous contrast HISTORY: SBO COMPARISON: 06/16/2018 TECHNIQUE: Unenhanced. Neither IV nor oral contrast administered Radiation dose: Total exam DLP = 855.23 mGy-cm. This CT exam was performed using one or more of the following dose reduction techniques: Automated exposure control, adjustment of the mA and/or kV according to patient size, and/or use of iterative reconstruction technique. FINDINGS: LOWER THORAX: Interval improvement in previously identified atelectasis at the lung bases. LIVER: Stable cyst left hepatic lobe. No gross lesion or ductal dilatation. GALLBLADDER AND BILE DUCTS: Diminution in fluid in the gallbladder fossa consistent with recent cholecystectomy. PANCREAS: Unremarkable. No gross lesion or ductal dilatation. SPLEEN: Unremarkable. ADRENALS: Unremarkable. No mass. KIDNEYS AND URETERS: Unremarkable. No hydronephrosis. No solid mass. VASCULATURE: Unremarkable. No aortic aneurysm. No atherosclerotic calcification or mural plaque present. BOWEL: Dilated proximal and mid small bowel with diminution in caliber distal loops of small bowel consistent with incomplete small bowel obstruction. Similar findings identified on the prior study. Diverticulosis without an acute inflammatory component or other associated pathologic process. APPENDIX: A normal appendix is visualized in it's entirety. PERITONEUM: Unremarkable. No free fluid. No free air. Resolution of previously identified low volume ascites. LYMPH NODES: Unremarkable. No enlarged lymph nodes. BLADDER: Unremarkable. REPRODUCTIVE: Unremarkable. BONES: No acute fracture. OTHER FINDINGS: None. IMPRESSION: Incomplete small bowel obstruction similar to that seen previously. Improving postoperative changes related to recent cholecystectomy. Additional benign and/or incidental findings described above.
--- NOTE | 2018-06-23 07:52 | CP.PCM.PN ---
Subjective - Date & Time of Evaluation Date of Evaluation: 06/23/18 Time of Evaluation: 07:49 - Subjective Subjective: Surgery: Dr. Amaya Patient reports feeling better today. Tolerating liquid diet. Denies n/v/f/c. Mild abdominal pain but overall improved. Objective - Vital Signs/Intake and Output Vital Signs (last 24 hours): Temp Pulse Resp BP Pulse Ox 98.2 F 94 H 19 105/72 98 06/23/18 00:16 06/23/18 00:16 06/23/18 00:16 06/23/18 00:16 06/23/18 00:16 - Medications Medications: Current Medications Acetaminophen (Tylenol 325mg Tab) 650 mg PO Q6 PRN PRN Reason: Pain, Mild (1-3) Last Admin: 06/21/18 00:13 Dose: 650 mg Albuterol (Ventolin Hfa 90 Mcg/Actuation (8 G)) 2 puff IH Q6 PRN PRN Reason: Shortness of Breath Brimonidine Tartrate (Alphagan 0.2% Opht) 1 drop OD BID [facility] Dorzolamide HCl (Trusopt) 1 drop OD BID [facility] Enoxaparin Sodium (Lovenox) 40 mg SC DAILY [facility]; Protocol Last Admin: 06/22/18 09:14 Dose: 40 mg Hydrochlorothiazide (Microzide) 12.5 mg PO DAILY [facility] Last Admin: 06/22/18 13:42 Dose: 12.5 mg Ketorolac Tromethamine (Toradol) 15 mg IVP Q6 PRN PRN Reason: Pain, moderate (4-7) Last Admin: 06/23/18 03:07 Dose: 15 mg Lisinopril (Zestril) 20 mg PO DAILY [facility] Last Admin: 06/22/18 13:43 Dose: 20 mg Metoclopramide HCl (Reglan) 5 mg IVP Q8 [facility] Last Admin: 06/23/18 01:47 Dose: Not Given Prednisolone Acetate (Pred Forte 1% Opht Susp) 1 drop OD DAILY [facility] Last Admin: 06/22/18 09:15 Dose: 1 drop Simethicone (Mylicon Chew Tab) 80 mg PO [facility] Last Admin: 06/22/18 21:32 Dose: 80 mg - Labs Labs: 06/22/18 05:55 06/22/18 05:55 - Constitutional Appears: Non-toxic, No Acute Distress - Head Exam Head Exam: ATRAUMATIC, NORMOCEPHALIC - Eye Exam Eye Exam: EOMI, Normal appearance - ENT Exam ENT Exam: Mucous Membranes Moist - Respiratory Exam Respiratory Exam: NORMAL BREATHING PATTERN. absent: Respiratory Distress - Cardiovascular Exam Cardiovascular Exam: REGULAR RHYTHM. absent: Tachycardia - GI/Abdominal Exam GI & Abdominal Exam: Soft. absent: Distended, Guarding, Tenderness, Rebound - Neurological Exam Neurological Exam: Alert, Awake, Oriented x3 - Psychiatric Exam Psychiatric exam: Normal Affect, Normal Mood - Skin Skin Exam: Dry, Normal Color, Warm Assessment and Plan - Assessment and Plan (Free Text) Assessment: 58 y/o male s/p Lap ursula w/ partial SBO Plan: -ADAT, trial of soft diet today -OOB -IS use -monitor for n/v -if tolerates possible plan for d/c, if not then will consider OR for persistent obstructive symptoms -further recs per Dr. Amaya [place] PGY4
[2018-06-23 08:09] VITALS: O2SAT 97
[2018-06-23] MEDS: Enoxaparin 40 mg Syringe SC SCH (08:40)
[2018-06-23] MEDS: Simethicone 80 mg Chewtab PO SCH ×2 (08:41→12:26)
[2018-06-23] MEDS: Brimonidine 0.2% 50 DROP/5 ML BOTTLE OD SCH ×2 (08:41→18:15)
[2018-06-23] MEDS: Dorzolamide 2% Ophth Soln OD SCH ×2 (08:42→18:16)
[2018-06-23] MEDS: PrednisoLONE 1% OPTH SUSP OD SCH (08:42)
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
[2018-06-23 16:53] VITALS: BP 120/83; PULSE 61; RESP 18; TEMP 97.7
== END 2018-06-23 17:45 | disposition home or self-care (01) | DRG 390 ==
LOC: H.ER 08:54 → H.ERHOLD 15:25 → OBSVTOIN 15:25 → H.MEDSURG1 23:12
PROVIDERS: ADMIT Specialist; ATTEND Specialist
DX: K56.690 Other partial intestinal obstruction (principal); I10 Essential (primary) hypertension; Z90.49 Acquired absence of other specified parts of digestive tract

== ENCOUNTER 2018-07-12 08:40 | Emergency (ER) | payer OTHER ==
[2018-07-12 08:42] VITALS: BMI 27.4
[2018-07-12 08:45] VITALS: BP 131/87; PULSE 76; RESP 20; TEMP 97.5; O2SAT 98
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
[2018-07-12] MEDS ORDERED: Sodium Chloride 0.9% 1,000 ML IV SCH (09:30)
[2018-07-12 09:43] LABS: BASO % 0.5 % (0.0-2.0); EOS # 0.2 K/uL (0.0-0.7); EOS % 2.3 % (0.0-4.0); HEMOGLOBIN 13.5 g/dL (12.0-18.0); LYMPH # 1.7 K/uL (1.0-4.3); LYMPH % 18.5 % (20.0-40.0); MEAN CELL VOLUME 82.5 fl (80.0-94.0); MEAN CORPUSCULAR HEMOGLOBIN 27.2 pg (27.0-31.0); MEAN CORPUSCULAR HGB CONC 32.9 g/dL (33.0-37.0); MEAN PLATELET VOLUME 8.8 fl (7.2-11.7); MONO # 0.9 K/uL (0.0-0.8); MONO % 10.3 % (0.0-10.0); NEUT # 6.1 K/uL (1.8-7.0); NEUT % 68.4 % (50.0-75.0); NRBC % 0.1 % (0.0-0.0); RBC 4.96 Mil/uL (4.40-5.90); RED CELL DISTRIBUTION WIDTH 14.3 % (11.5-14.5)
[2018-07-12 09:59] LABS: URINE BILIRUBIN NEGATIVE (NEGATIVE); URINE BLOOD NEGATIVE (NEGATIVE); URINE CLARITY SLIGHTY-CLOUDY (Clear); URINE COLOR YELLOW (YELLOW); URINE GLUCOSE (UA) NEG (NEGATIVE); URINE LEUKOCYTE ESTERASE NEG Leu/uL (Negative); URINE PROTEIN NEGATIVE (NEGATIVE); URINE UROBILINOGEN 0.2-1.0 mg/dL (0.2-1.0)
[2018-07-12 10:12] LABS: ALB/GLOB RATIO 1.3 (1.0-2.1); ALBUMIN 4.2 g/dL (3.5-5.0); ALT/SGPT 54 U/L (21-72); AST/SGOT 24 U/L (17-59); BLOOD UREA NITROGEN 12 mg/dl (9-20); CALCIUM 8.6 mg/dL (8.4-10.2); GFR NON-AFRICAN AMERICAN > 60; LIPASE 121 U/L (23-300)
[2018-07-12] MEDS ORDERED: Iohexol 300 100 ML IJ ONE (11:10)
[2018-07-12] MEDS ORDERED: Sodium Chloride 0.9% 50 ML IV ONE (11:10)
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
== END 2018-07-12 15:15 | disposition home or self-care (01) ==
LOC: SUPCPDRO 08:40 → H.ER 08:40
DX: R10.9 Unspecified abdominal pain (principal); E86.0 Dehydration; K52.9 Noninfective gastroenteritis and colitis, unspecified; I10 Essential (primary) hypertension
CPT/HCPCS: 74177; 80053; 81003; 83690; 85025; 99284; J7030; Q9967

== ENCOUNTER 2018-09-28 06:06 | Emergency (ER) | payer SELFPAY ==
[2018-09-28 06:23] VITALS: BMI 29.0
[2018-09-28] MEDS ORDERED: Sodium Chloride 0.9% 1,000 ML IV STA (07:57)
--- NOTE | 2018-09-28 07:59 | ED PDOC ---
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 He reports a history of cataract surgery in June 2018 as well. Otherwise, patient denies any contact lens use, foreign body, nausea, vomiting, weakness or numbness. He denies any trauma or injuries to his eyes/ foreigb body or FB sensation to eye . No additional complaints. PMD: Dr. Mott Past Medical History Reviewed: Historical Data, Nursing Documentation, Vital Signs Vital Signs: Last Vital Signs Temp 98.0 F 09/28/18 06:34 Pulse 82 09/28/18 06:34 Resp 16 09/28/18 06:34 BP 116/81 09/28/18 06:34 Pulse Ox 97 09/28/18 06:34 - Medical History PMH: Gastritis, HTN Denies: Chronic Kidney Disease - Surgical History Surgical History: Cholecystectomy Other surgeries: cataract - Family History Family History: States: Unknown Family Hx - Social History Current smoker - smoking cessation education provided: No Alcohol: Occasional Drugs: Denies - Immunization History Hx Tetanus Toxoid Vaccination: Yes Hx Influenza Vaccination: No Hx Pneumococcal Vaccination: No - Home Medications Home Medications: Ambulatory Orders Medication Instructions Recorded Albuterol Sulfate [Ventolin Hfa] 2 puff IH Q6 PRN 06/16/18 Brinzolamide/Brimonidine Tart 1 drop RIGHTEYE TID 06/16/18 [Simbrinza 1%-0.2% Eye Drops] Lisinopril/Hydrochlorothiazide 1 tab PO DAILY 06/16/18 [Lisinopril-Hctz 20-12.5 mg Tab] Metoclopramide HCl [Reglan] 5 mg PO Q6 #30 tablet 06/23/18 Metronidazole 500 mg PO TID #42 tablet 07/12/18 Tobramycin 0.3% [Tobrex 0.3% Ophth 1 drop OU QID #1 bottle 09/28/18 Soln] - Allergies Allergies/Adverse Reactions: Allergies Allergy/AdvReac Type Severity Reaction Status Date / Time No Known Allergies Allergy Verified 06/05/18 02:32 Review of Systems ROS Statement: Except As Marked, All Systems Reviewed And Found Negative Constitutional: Negative for: Fever, Chills Eyes: Positive for: Pain, Conjunctivae Inflammation, Redness. Negative for: Vision Change Gastrointestinal: Negative for: Nausea, Vomiting Neurological: Negative for: Weakness, Numbness Physical Exam - Reviewed Nursing Documentation Reviewed: Yes Vital Signs Reviewed: Yes - Physical Exam Appears: Positive for: No Acute Distress Head Exam: Positive for: ATRAUMATIC, NORMAL INSPECTION, NORMOCEPHALIC Skin: Positive for: Warm, Dry Eye Exam: Positive for: EOMI, PERRL, Conjunctival injection (c/w conjunctivitis) ENT: Positive for: Other (dry mucosa). Negative for: Pharyngeal Erythema Neck: Positive for: Normal, Supple Cardiovascular/Chest: Positive for: Regular Rate, Rhythm Respiratory: Positive for: Normal Breath Sounds Gastrointestinal/Abdominal: Positive for: Bowel Sounds, Soft. Negative for: Tenderness Extremity: Positive for: Normal ROM Neurological/Psych: Positive for: Alert, Symmetric/Intact Strength (5/5 strength all extremities), Oriented (x 3). Negative for: Motor/Sensory Deficits - Laboratory Results Result Diagrams: 09/28/18 08:10 09/28/18 08:10 - ECG O2 Sat by Pulse Oximetry: 97 (RA) Pulse Ox Interpretation: Normal Medical Decision Making Medical Decision Makinyo male with conjunctivitis Plan: -- Labs -- CT head w/o contrast -- IV fluids -- Reglan 10mg IV -- Toradol 30mg IV 1027 Labs reviewed, no clinically significant abnormalities CT Head FINDINGS: HEMORRHAGE: No intracranial hemorrhage. BRAIN: Normal guadarrama-white matter differentiation and density are appreciated throughout the cerebrum and cerebellum with the brainstem appearing unremarkable as well. There is no mass effect. There is no suspicious extra-axial fluid collection and the midline brain anatomy appears diffusely unremarkable. VENTRICLES: Unremarkable. No hydrocephalus. CALVARIUM: Unremarkable. Chronic limited thickening left frontal scalp soft tissue unchanged in the interval. PARANASAL SINUSES: Unremarkable as visualized. No significant inflammatory changes. MASTOID AIR CELLS: Unremarkable as visualized. No inflammatory changes. OTHER FINDINGS: None. IMPRESSION: Unremarkable unenhanced head CT. No significant change compared to prior CT dated 02/19/2016. On reassessment, patient reports feeling much better and is stable for d/c home. gross visual acuity normal. Instructed to take medications as prescribed and to follow up with PMD/opthalmologist in 2-3 days. Scribe Attestation: Documented by Elvira Olivo acting as a scribe for Layo Hays MD. Provider Attestation: All medical record entries made by the Scribe were at my direction and personally dictated by me. I have reviewed the chart and agree that the record accurately reflects my personal performance of the history, physical exam, medical decision making, and the department course for this patient. I have also personally directed, reviewed, and agree with the discharge instructions and disposition. Disposition - Clinical Impression Clinical Impression: Conjunctivitis - Patient ED Disposition Is Patient to be Admitted: No Counseled Patient/Family Regarding: Studies Performed, Diagnosis, Need For Followup - Disposition Referrals: Errol Carrizales MD [Staff Provider] - Disposition: Routine/Home Disposition Time: 10:29 Condition: IMPROVED Additional Instructions: follow up with your doctor in 1-2 day for reevaluation, and if needed, to opthalmologist return to the ED with any worsening or concerning symptoms Prescriptions: Tobramycin 0.3% [Tobrex 0.3% Ophth Soln] 1 drop OU QID #1 bottle Instructions: Conjunctivitis ([place]) (DC) Forms: [employer] (Angolan), [employer] (Latvian) Print Language: DANISH
[2018-09-28 08:29] LABS: BASO % 0.6 % (0.0-2.0); EOS # 0.2 K/uL (0.0-0.7); EOS % 3.1 % (0.0-4.0); HEMOGLOBIN 14.5 g/dL (12.0-18.0); LYMPH # 1.9 K/uL (1.0-4.3); LYMPH % 30.5 % (20.0-40.0); MEAN CELL VOLUME 81.7 fl (80.0-94.0); MEAN CORPUSCULAR HEMOGLOBIN 27.6 pg (27.0-31.0); MEAN CORPUSCULAR HGB CONC 33.8 g/dL (33.0-37.0); MEAN PLATELET VOLUME 8.8 fl (7.2-11.7); MONO # 0.5 K/uL (0.0-0.8); MONO % 7.4 % (0.0-10.0); NEUT # 3.6 K/uL (1.8-7.0); NEUT % 58.4 % (50.0-75.0); NRBC % 0.2 % (0.0-0.0); RBC 5.25 Mil/uL (4.40-5.90); RED CELL DISTRIBUTION WIDTH 16.1 % (11.5-14.5); WHITE BLOOD COUNT 6.1 K/uL (4.8-10.8)
[2018-09-28 08:43] LABS: ALB/GLOB RATIO 1.3 (1.0-2.1); ALBUMIN 4.4 g/dL (3.5-5.0); ALT/SGPT 33 U/L (21-72); AST/SGOT 39 U/L (17-59); BLOOD UREA NITROGEN 9 mg/dl (9-20); CALCIUM 9.2 mg/dL (8.4-10.2); GFR NON-AFRICAN AMERICAN > 60
--- NOTE | 2018-09-28 09:31 | CT ---
Date of service: 09/28/2018 PROCEDURE: CT HEAD WITHOUT CONTRAST. HISTORY: headache COMPARISON: Noncontrast head CT 02/19/2016. TECHNIQUE: Axial computed tomography images were obtained through the head/brain without intravenous contrast. Radiation dose: Total exam DLP = 796.93 mGy-cm. This CT exam was performed using one or more of the following dose reduction techniques: Automated exposure control, adjustment of the mA and/or kV according to patient size, and/or use of iterative reconstruction technique. FINDINGS: HEMORRHAGE: No intracranial hemorrhage. BRAIN: Normal [place]ama-white matter differentiation and density are appreciated throughout the cerebrum and cerebellum with the brainstem appearing unremarkable as well. There is no mass effect. There is no suspicious extra-axial fluid collection and the midline brain anatomy appears diffusely unremarkable. VENTRICLES: Unremarkable. No hydrocephalus. CALVARIUM: Unremarkable. Chronic limited thickening left frontal scalp soft tissue unchanged in the interval. PARANASAL SINUSES: Unremarkable as visualized. No significant inflammatory changes. MASTOID AIR CELLS: Unremarkable as visualized. No inflammatory changes. OTHER FINDINGS: None. IMPRESSION: Unremarkable unenhanced head CT. No significant change compared to prior CT dated 02/19/2016.
[2018-09-28 12:14] VITALS: BP 128/80; PULSE 62; RESP 18; TEMP 98.8
[2018-09-28 12:37] VITALS: O2SAT 97
== END 2018-09-28 12:17 | disposition home or self-care (01) ==
LOC: H.ER 06:06
DX: H10.9 Unspecified conjunctivitis (principal); I10 Essential (primary) hypertension
CPT/HCPCS: 70450; 80053; 85025; 96361; 96374; 96375; 99284; J1885; J2765; J7030